=== PATIENT | female | born 1945 | race Caucasian/White ===

== ENCOUNTER 2021-08-24 14:35 | Emergency (ER) | payer MEDICARE ==
[2021-08-24] MEDS ORDERED: Sodium Chloride 0.9% 10 ML Syringe FLUSH PRN (15:31)
[2021-08-24 16:41] LABS: HEMOGLOBIN A1C 10.5 %
[2021-08-24] MEDS ORDERED: Iopamidol 612 MG/ML 100 ML Bottle IVPUSH ONE (16:54)
[2021-08-24] MEDS ORDERED: Sodium Chloride 0.9% 1,000 ML IV SCH (17:00)
[2021-08-24] MEDS ORDERED: Piperacillin/Tazobactam 4.5 GM in Sodium Chloride 0.9% 100 ML IV ONE (19:15)
== END 2021-08-24 20:10 ==
LOC: JD.ED 14:35
DX: M86.8X7 Other osteomyelitis, ankle and foot (principal); E78.00 Pure hypercholesterolemia, unspecified; E11.9 Type 2 diabetes mellitus without complications; Z79.84 Long term (current) use of oral hypoglycemic drugs; Z79.899 Other long term (current) drug therapy; Z20.822 Contact with and (suspected) exposure to COVID-19
CPT/HCPCS: 36415; 73701; 80053; 81001; 83036; 83605; 83735; 85025; 86140; 87040; 87070; 87075; 87077; 87186; 87205; 96365; 96367; 99285; J2543; J3370; J3490; J7030; J7050; Q9967; U0002